=== PATIENT | male | born 1965 | race Caucasian/White ===

== ENCOUNTER 2017-02-01 19:56 | Emergency (ER) | payer MEDICARE, MEDICAID ==
[~2017-02-01] VITALS: Ht 180.3 cm; Wt 80.0 kg
[~2017-02-01 19:56] MED LIST: ALPR.25 PO; BENZ1TAB PO; ILOP6TAB PO; SERT100 PO
[2017-02-01 19:58] VITALS: BP 143/83; PULSE 74; RESP 16; TEMP 98.2; O2SAT 96
[2017-02-01] MEDS ORDERED: SODIUM CHLORIDE 0.9% FLUSH 5 ML FLUSH IVF PRN (20:15)
[2017-02-01 20:20] VITALS: O2SAT 96
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
[2017-02-01 20:32] LABS: AUTOMATED NEUTROPHIL # 4.8 TH/MM3 (1.8-7.7); BASOPHIL % 0.5 % (0.0-2.0); EOSINOPHIL # 0.3 TH/MM3 (0-0.4); EOSINOPHIL % 3.5 % (0.0-4.0); HEMO FLAGS DIFF FINAL; LYMPH % 22.6 % (9.0-44.0); LYMPHOCYTE # 1.7 TH/MM3 (1.0-4.8); MEAN CELL VOLUME 90.1 FL (80.0-100.0); MEAN CORPUSCULAR HEMOGLOBIN 31.2 PG (27.0-34.0); MEAN CORPUSCULAR HGB CONC 34.6 % (32.0-36.0); MONO % 7.7 % (0.0-8.0); NEUT % 65.7 % (16.0-70.0); PLATELET COUNT 293 TH/MM3 (150-450); RED BLOOD COUNT 4.88 MIL/MM3 (4.50-5.90); RED CELL DISTRIBUTION WIDTH 12.6 % (11.6-17.2); WHITE BLOOD COUNT 7.4 TH/MM3 (4.0-11.0)
--- NOTE | 2017-02-01 20:34 | RADRPT ---
EXAM DATE/TIME: 02/01/2017 20:09 [facility] COMPARISON: CHEST SINGLE AP, September 27, 2014, 14:29. INDICATIONS : Weakness. Syncope. MEDICAL HISTORY : None. SURGICAL HISTORY : None. ENCOUNTER: Initial ACUITY: 1 day PAIN SCORE: 6/10 LOCATION: Bilateral chest FINDINGS: A single view of the chest demonstrates the lungs to be symmetrically aerated without evidence of mas s, infiltrate or effusion. The cardiomediastinal contours are unremarkable. Osseous structures are intact. CONCLUSION: No acute disease. Eulalio Ansari MD on February 01, 2017 at 20:33 Board Certified Radiologist. This report was verified electronically.
[2017-02-01 21:13] LABS: ALKALINE PHOSPHATASE 49 U/L (45-117); ALT (GPT) 32 U/L (12-78); ANION GAP 9 MEQ/L (5-15); AST (GOT) 24 U/L (15-37); BICARBONATE 27.6 MEQ/L (21.0-32.0); BLOOD UREA NITROGEN 14 MG/DL (7-18); CHLORIDE 103 MEQ/L (98-107); CREATINE KINASE 154 U/L (39-308); GLOMERULAR FILTRATION RATE 72 ML/MIN (>89); MAGNESIUM 2.3 MG/DL (1.5-2.5); POTASSIUM 3.9 MEQ/L (3.5-5.1); SODIUM (NA) 140 MEQ/L (136-145); TOTAL BILIRUBIN ADULT 0.3 MG/DL (0.2-1.0)
[2017-02-01 21:25] LABS: CKMB LESS THAN 0.5 NG/ML (0.5-3.6)
[2017-02-01 21:50] LABS: BLOOD, URINE NEG (NEG); COMMENT (UR) CULT NOT INDICATED; CULTURE IF INDICATED CULT NOT INDICATED; GLUCOSE,URINE NEG (NEG); KETONE, URINE NEG (NEG); MUCUS URINE FEW /lpf (OCC); NITRITE,URINE NEG (NEG); URINE COLOR YELLOW (YELLW/STRAW)
[2017-02-01] MEDS ORDERED: MECL-62 PO (22:07)
--- NOTE | 2017-02-02 10:15 | EKG ---
Date Performed: 02/01/2017 Time Performed: 20:19:00 PTAGE: 51 years EKG: Sinus rhythm NORMAL ECG Compared to prior tracing no significant change PREVIOUS TRACING : 09/28/2014 11.01 DOCTOR: Philip Valdovinos Interpretating Date/Time 02/02/2017 10:13:49
== END 2017-02-01 22:49 | disposition home or self-care (01) ==
LOC: NEPE 19:56
DX: R42 Dizziness and giddiness (principal); I48.91 Unspecified atrial fibrillation; I25.10 Atherosclerotic heart disease of native coronary artery without angina pectoris; I10 Essential (primary) hypertension
CPT/HCPCS: 71010; 80053; 81001; 82550; 82552; 83735; 84484; 85025; 93005

== ENCOUNTER 2017-08-27 00:09 | Emergency (ER) | payer OTHER, MEDICAID ==
[~2017-08-27] VITALS: Ht 180.3 cm; Wt 98.0 kg
[~2017-08-27 00:09] MED LIST changes: -ALPR.25 PO; -BENZ1TAB PO; -ILOP6TAB PO; +MECL-62 PO; -SERT100 PO
[2017-08-27 00:13] VITALS: BP 136/81; PULSE 84; RESP 16; TEMP 98.2; O2SAT 95
[2017-08-27] MEDS ORDERED: HYDR-3583 PO (00:30)
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
== END 2017-08-27 03:14 | disposition home or self-care (01) ==
LOC: NEPD 00:09
DX: F25.1 Schizoaffective disorder, depressive type (principal); G89.29 Other chronic pain; M54.5 Low back pain; I48.91 Unspecified atrial fibrillation; I10 Essential (primary) hypertension
CPT/HCPCS: 99282

== ENCOUNTER 2017-10-05 07:22 | Emergency (ER) | payer OTHER, MEDICAID ==
[~2017-10-05] VITALS: Ht 180.3 cm; Wt 100.0 kg
[~2017-10-05 07:22] MED LIST changes: +HYDR-3583 PO
[2017-10-05 07:24] VITALS: BP 142/90; PULSE 104; RESP 17; TEMP 98.6; O2SAT 95
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
--- NOTE | 2017-10-05 09:07 | RADRPT ---
EXAM DATE/TIME: 10/05/2017 08:33 [facility] COMPARISON: No previous studies available for comparison. INDICATIONS : Right testicle pain for 1 day. MEDICAL HISTORY : Hypertension. Gastroesophageal reflux disease. Chronic testicular pain. Coronary artery disease. Atir al fibrillation. Scizophrenia. Bipolar disorder. SURGICAL HISTORY : Left heel spur surgery. Deviated septum repair. ENCOUNTER: Initial ACUITY: 1 day PAIN SCORE: 9/10 LOCATION: Bilateral testicles. MEASUREMENTS: RIGHT TESTICLE: 5.0 x 3.7 x 2.2cm LEFT TESTICLE: 4.5 x 3.3 x 2.4cm FINDINGS: RIGHT TESTICLE: Homogeneous echotexture without intra or extratesticular mass. Blood flow is symmetric and within no rmal limits. Small hydrocele. No varicocele. Small cyst in the epididymal head. Epididymis is otherw ise within normal limits. LEFT TESTICLE: Homogeneous echotexture without intra or extratesticular mass. Blood flow is symmetric and within no rmal limits Small hydrocele. No varicocele. Small Epididymis is within normal limits. SCROTUM: Within normal limits. CONCLUSION: 1. Unremarkable testicular ultrasound examination. Intact symmetrical testicular blood flow. 2. Small right epididymal head cyst. 3. Small bilateral hydroceles. Speedy Cuba MD on October 05, 2017 at 9:03 Board Certified Radiologist. This report was verified electronically.
[2017-10-05] MEDS ORDERED: DOXY100C PO (09:35)
[2017-10-05] MEDS ORDERED: cefTRIAXone 250 MG VIAL IM ONE (09:45)
== END 2017-10-05 10:16 | disposition home or self-care (01) ==
LOC: NEPD 07:22
DX: N45.1 Epididymitis (principal); N43.3 Hydrocele, unspecified; N50.811 Right testicular pain; I10 Essential (primary) hypertension
CPT/HCPCS: 76870; 93975; 96372; 99285; J0696